=== PATIENT | male | born 1975 | race American Indian/Alaskan Native ===

== ENCOUNTER 2017-06-16 02:42 | Emergency (ER) | payer OTHER ==
[2017-06-16 02:52] VITALS: TEMP 98; O2SAT 99
--- NOTE | 2017-06-16 03:22 | ED PDOC ---
HPI: Psych/Substance Abuse Time Seen by Provider: 06/16/17 03:00 Chief Complaint (Nursing): Substance Abuse Chief Complaint (Provider): substance abuse History Per: Patient, EMS Additional Complaint(s): 41 y/o male brought in by EMS for substance abuse. As per EMS, girlfriend called because patient told her he chugged water that had GHB in it. Patient states he "just drank too much tonight". Patient nodding out during interview, gait unsteady. Past Medical History Reviewed: Historical Data, Nursing Documentation, Vital Signs Vital Signs: Last Vital Signs Temp 98 F 06/16/17 02:49 Pulse 66 06/16/17 02:49 Resp 18 06/16/17 02:49 BP 134/86 06/16/17 02:49 Pulse Ox 99 06/16/17 02:49 - Medical History PMH: No Chronic Diseases - Family History Family History: States: No Known Family Hx - Allergies Allergies/Adverse Reactions: Allergies Allergy/AdvReac Type Severity Reaction Status Date / Time No Known Allergies Allergy Verified 06/16/17 02:49 Review of Systems Review Of Systems: ROS cannot be obtained secondary to pt's inabilty to answer questions. Physical Exam - Reviewed Nursing Documentation Reviewed: Yes Vital Signs Reviewed: Yes - Physical Exam Appears: Positive for: Well, Non-toxic, No Acute Distress Head Exam: Positive for: ATRAUMATIC, NORMAL INSPECTION, NORMOCEPHALIC Skin: Positive for: Normal Color Eye Exam: Positive for: Normal appearance ENT: Positive for: Normal ENT Inspection Cardiovascular/Chest: Positive for: Regular Rate, Rhythm Respiratory: Positive for: Normal Breath Sounds Gastrointestinal/Abdominal: Positive for: Normal Exam Back: Positive for: Normal Inspection Extremity: Positive for: Normal ROM Neurologic/Psych: Positive for: Alert, Oriented, Other (slurred speech, gait unsteady) - Laboratory Results Result Diagrams: 06/16/17 04:54 06/16/17 04:54 - ECG O2 Sat by Pulse Oximetry: 99 - Progress ED Course And Treament: Patient refusing to cooperate with staff; attempting to get out of bed with unsteady gait. Patient escorted back to bed by ED staff and security, and again attempting to get up, stumbling. Patient refusing to comply with alternative measures offered; temporarily restrained and placed in hospital gown, placed on hospital monitor On re-eval, patient sleeping; restraints removed. Vitals stable on monitor 6:00 Patient awake, alert, oriented x3. Ambulating steady gait. Friend, Liane, at bedside to take patient home Return precautions given Disposition - Clinical Impression Clinical Impression: Substance abuse - Patient ED Disposition Is Patient to be Admitted: No Counseled Patient/Family Regarding: Studies Performed, Diagnosis, Need For Followup - Disposition Disposition: Routine/Home Disposition Time: 06:00 Condition: STABLE Instructions: Drug Abuse and Drug Addiction (DC)
[2017-06-16 04:58] LABS: BASO # 0.1 K/uL (0.0-0.2); BASO % 0.5 % (0.0-2.0); EOS % 0.1 % (0.0-4.0); LYMPH # 1.5 K/uL (1.0-4.3); LYMPH % 11.5 % (20.0-40.0); MEAN CELL VOLUME 89.4 fl (80.0-94.0); MEAN CORPUSCULAR HEMOGLOBIN 30.6 pg (27.0-31.0); MEAN CORPUSCULAR HGB CONC 34.2 g/dL (33.0-37.0); MEAN PLATELET VOLUME 8.6 fl (7.2-11.7); MONO # 0.5 K/uL (0.0-0.8); MONO % 4.1 % (0.0-10.0); NEUT # 11.2 K/uL (1.8-7.0); NEUT % 83.8 % (50.0-75.0); NRBC % 0.1 % (0.0-0.0); RBC 5.57 Mil/uL (4.40-5.90); RED CELL DISTRIBUTION WIDTH 13.5 % (11.5-14.5); WHITE BLOOD COUNT 13.4 K/uL (4.8-10.8)
[2017-06-16 05:06] LABS: ALB/GLOB RATIO 1.3 (1.0-2.1); ALBUMIN 4.5 g/dL (3.5-5.0); ALT/SGPT 50 U/L (21-72); AST/SGOT 41 U/L (17-59); BLOOD UREA NITROGEN 22 mg/dl (9-20); CALCIUM 9.6 mg/dL (8.4-10.2); GFR AFRICAN-AMERICAN > 60; GFR NON-AFRICAN AMERICAN > 60
[2017-06-16 06:29] VITALS: BP 133/76; PULSE 80; RESP 18
== END 2017-06-16 06:00 | disposition home or self-care (01) ==
LOC: H.ER 02:42
DX: F19.10 Other psychoactive substance abuse, uncomplicated (principal)